=== PATIENT | male | born 1960 | race Caucasian/White ===

== ENCOUNTER 2017-01-06 07:20 | Day surgery (SDC) | payer OTHER ==
[2017-01-01 14:51] LABS: HEMATOCRIT 49.5 % (40.0-51.0); HEMOGLOBIN 16.7 g/dL (13.6-17.8)
[2017-01-01 15:03] LABS: BUN (BLOOD UREA NITROGEN) 24 MG/DL (6-23); CALCIUM, SERUM 10.1 MG/DL (8.5-10.4); CHLORIDE, SERUM 103 MMOL/L (96-112); CO2 (CARBON DIOXIDE) 29 MMOL/L (24-34); GFR AFRICAN AMERICAN 78 ML/MIN (>=60); GFR NON AFRICAN AMERICAN 68 ML/MIN (>=60); GLUCOSE, SERUM 107 MG/DL (60-99); POTASSIUM, SERUM 5.9 MMOL/L (3.5-5.3); SODIUM, SERUM 139 MMOL/L (135-148)
--- NOTE | ~2017-01-06 | OP ---
Record Of Operation [facility] [address] [place]. 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 PROCEDURES: 1. Microdirect laryngoscopy with biopsy of the left tonsil. 2. Ultrasound-guided needle biopsy of left level 2 cervical lymph node. ANESTHESIA: General. COMPLICATIONS: None. COUNTS: All counts were correct following the procedure. ESTIMATED BLOOD LOSS: 5 mL. PREOPERATIVE INFORMED CONSENT: We discussed the risks and benefits of the surgery include but not limited to bleeding and infection, and consent is on the chart. PROCEDURE IN DETAIL: The patient was brought to the operating suite, placed on the operating room table in supine position. General anesthesia was initiated without incident. The patient's head and neck were cleaned, prepped and draped in the usual sterile fashion. Following this, a bite guard was placed on the upper teeth, and a Dedo laryngoscope was inserted in the oral cavities, inspected the oral cavity and oropharynx. There was noted to be slight enlargement of the left tonsil, but no specific ulceration was noted. The base of tongue, hypopharynx, and larynx were all visualized, and no evidence of any specific lesions. Multiple biopsies were taken of the left mid portion of the tonsil which was very firm to palpation. This was sent for frozen section. Bleeding was controlled using topical Adrenalin on pledgets. Final pathology came back consistent with invasive squamous cell carcinoma. The left neck was cleaned and prepped in the usual sterile fashion. Under ultrasound guidance, a cystic lesion in the left level 2 of the neck was biopsied using two separate 22 gauge needles. Moderate amount of serosanguineous fluid was aspirated, and some was sent for culture for Gram stain and C and S. The remainder was sent placed on slides both air dried and fixed in alcohol as well as specimen sent in formalin for cell block. The patient was awakened from anesthesia, taken to the recovery room in stable condition. COLETTE/HAYLIE Jyotsna Romeo, Record Of Operation [facility] [address] [place]. [address] NAME: BISI JAIME : 62 STATUS : [facility] PAT#: [id number] AGE: 56 ADM/REG DATE : 01/06/17 MR#: [id number] REPORT SERV DATE: 01/06/17 DICTATED BY: JYOTSNA ROMEO DATE: 01/06/17 REPORT STATUS : Draft TRANSCRIBED BY: HAYLIE DATE: 01/06/17 Ann / [id number] CC: Ann Gonzales III, D.O.
[~2017-01-06 07:20] MED LIST: LIPITOR10 PO; PRINZIDE1 TA1 PO
== END 2017-01-06 14:44 | disposition home or self-care (01) ==
LOC: SDC 07:20
PROVIDERS: Otolaryngology
PROC: 07923ZX Drainage of Left Neck Lymphatic, Percutaneous Approach, Diagnostic (ICD-10-PCS; 2017-01-06)
PROC: BW4FZZZ Ultrasonography of Neck (ICD-10-PCS; 2017-01-06)
PROC: 0CBS8ZX Excision of Larynx, Via Natural or Artificial Opening Endoscopic, Diagnostic (ICD-10-PCS; principal; 2017-01-06 10:15)
DX: C09.9 Malignant neoplasm of tonsil, unspecified (principal); L04.0 Acute lymphadenitis of face, head and neck; I10 Essential (primary) hypertension; E78.00 Pure hypercholesterolemia, unspecified; E78.5 Hyperlipidemia, unspecified; E66.9 Obesity, unspecified; Z68.38 Body mass index [BMI] 38.0-38.9, adult; Z87.891 Personal history of nicotine dependence
CPT/HCPCS: 36415; 80048; 84132; 85014; 85018; 87070; 87075; 87205; 88173; 88305; 88331; 88341; 88342; 88360; 93005; J0690; J2250; J2405; J2710; J3010